=== PATIENT | female | born 1945 | race Caucasian/White ===

== ENCOUNTER → 2017-10-28 | Outpatient (CLI) | payer MEDICARE, OTHER ==
[~2017-10-28] MED LIST: AMARYL4 MG PO; ASPIR 8181 MG PO; AVANDIA PO; AVANDIA8 MG; BONIVA150 MG; CELEXA 20 MG TA20 MG PO; CLEOCIN HCL300 MG PO; CLINDAMYCI75 MG/5 ML PO; COZAAR100 MG PO; CRESTOR10 MG PO; DESYREL50 MG PO; DETROL2 M1 PO; GEMFIBROZIL 60600 MG PO; GLUCOPHAGE500 MG PO; GLYBURID-METFO1 EAC3 PO; GLYBURIDE 5 MG T5 M1 PO; HYDROCODONE-AP1 EAC6 PO; IBUPROFEN 600600 M1 PO; LANTUS SUBQ; LEVOTHYROXIN0.025 MG PO; METFORMIN HCL500 MG PO; MOBIC7.5 M1 PO; NORCO 5-325 TA1 EACH PO; OMEPRAZOLE40 MG PO; PERCOCET 5-3251 EACH PO; REQUIP 1 MG TABL1 M1 PO; SEE COMMENTS; SERTRALINE HCL100 MG PO; TRIAMTERENE-HC1 EAC3 PO; VITAMIN D3400 UNIT PO; [UNRECOGNIZED DRUG - OTHER]; [UNRECOGNIZED DRUG - REMARK]
== END ==
LOC: M.RAD 10-22 14:54
DX: Z12.31 Encounter for screening mammogram for malignant neoplasm of breast (principal); I65.23 Occlusion and stenosis of bilateral carotid arteries; E11.9 Type 2 diabetes mellitus without complications; I10 Essential (primary) hypertension; R73.9 Hyperglycemia, unspecified

== ENCOUNTER 2017-12-18 09:35 | Emergency (ER) | payer MEDICARE, OTHER ==
[~2017-12-18] VITALS: Ht 167.6 cm; Wt 90.7 kg
[~2017-12-18 09:35] MED LIST changes: -HYDROCODONE-AP1 EAC6 PO; -IBUPROFEN 600600 M1 PO; -[UNRECOGNIZED DRUG - REMARK]
[2017-12-18] MEDS ORDERED: [UNRECOGNIZED DRUG - REMARK] (09:57)
[2017-12-18] MEDS ORDERED: HYDROCODONE-AP1 EAC6 PO (10:38)
[2017-12-18] MEDS ORDERED: IBUPROFEN 600600 M1 PO (10:38)
[2017-12-18 11:02] VITALS: BP 146/59
== END 2017-12-18 11:02 | disposition home or self-care (01) ==
LOC: M.ERS 09:35
DX: S22.42XA Multiple fractures of ribs, left side, initial encounter for closed fracture (principal); E11.9 Type 2 diabetes mellitus without complications; E78.00 Pure hypercholesterolemia, unspecified; W18.30XA Fall on same level, unspecified, initial encounter; Y93.89 Activity, other specified; Y92.89 Other specified places as the place of occurrence of the external cause; Y99.8 Other external cause status

== ENCOUNTER → 2019-06-08 | Outpatient (CLI) | payer MEDICARE, OTHER ==
[~2019-06-08] MED LIST changes: +HYDROCODONE-AP1 EAC6 PO; +IBUPROFEN 600600 M1 PO; +[UNRECOGNIZED DRUG - REMARK]
[2019-06-08 06:28] LABS: POTASSIUM 4.7 mmol/L (3.5-5.1)
== END ==
LOC: M.LAB 04:59
PROVIDERS: Anesthesiology
DX: E11.9 Type 2 diabetes mellitus without complications (principal); E87.6 Hypokalemia

== ENCOUNTER → 2019-06-16 | Outpatient (CLI) | payer MEDICARE, OTHER | LOC: M.RAD 10:23 | DX: Z12.31 Encounter for screening mammogram for malignant neoplasm of breast (principal) ==

== ENCOUNTER 2019-09-09 10:29 | Emergency (ER) | payer MEDICARE, OTHER ==
[~2019-09-09] VITALS: Ht 180.3 cm; Wt 81.7 kg
[2019-09-09] MEDS ORDERED: LANTUS SUBQ (11:05)
[2019-09-09] MEDS ORDERED: LEVEMIR100 UNIT/1 (11:06)
[2019-09-09 12:31] VITALS: BP 131/78
== END 2019-09-09 12:32 | disposition home or self-care (01) ==
LOC: M.ERS 10:29
DX: M79.661 Pain in right lower leg (principal); E11.9 Type 2 diabetes mellitus without complications; E78.00 Pure hypercholesterolemia, unspecified; F32.9 Major depressive disorder, single episode, unspecified; Z98.84 Bariatric surgery status; Z91.048 Other nonmedicinal substance allergy status; Z79.4 Long term (current) use of insulin

== ENCOUNTER 2019-10-29 18:26 | Inpatient (IN) | payer OTHER ==
[~2019-10-29] VITALS: Ht 170.2 cm; Wt 81.6 kg
[~2019-10-29 18:26] MED LIST changes: +LEVEMIR100 UNIT/1 SUBQ
[2019-10-29 18:27] VITALS: BP 182/75
[2019-10-29 18:47] LABS: ABSOLUTE BASOPHILS 0.1 thou/uL (0.0-0.2); ABSOLUTE LYMPHOCYTES 1.4 thou/uL (0.8-5.3); ABSOLUTE MONOCYTES 0.6 thou/uL (0.0-1.2); ABSOLUTE NEUTROPHILS 5.5 thou/uL (1.6-8.1); BASOPHILS 0.7 %; EOSINOPHILS 0.5 %; HEMATOCRIT 38.6 % (37.0-47.0); HEMOGLOBIN 13.1 gm/dL (12.0-15.0); LYMPHOCYTES 18.7 %; MCH 28.1 pg (26.0-34.0); MCHC 33.8 g/dL (28.0-37.0); MCV 83.2 fL (80.0-100.0); MONOCYTES 7.4 %; MPV 8.4 fl. (7.2-11.1); NUCLEATED RBCS 0 /100WBC; PLATELET COUNT* 203 thou/uL (150-400); POLYS 72.7 %; RBC 4.64 mil/uL (4.20-5.00); RDW-CV 15.2 % (10.5-14.5); WBC 7.6 thou/uL (4.0-11.0)
[2019-10-29 18:51] LABS: PCO2 VENOUS 40.1 mmHg (41.0-51.0)
[2019-10-29 19:00] LABS: APTT 22.6 Seconds (25.0-31.3); PROTIME 10.1 Seconds (9.20-11.50)
[2019-10-29 19:09] LABS: CALCIUM 9.2 mg/dL (8.5-10.1); CREATININE 1.8 mg/dL (0.6-1.3); POTASSIUM 3.9 mmol/L (3.5-5.1)
[2019-10-29 19:10] LABS: ALBUMIN 3.3 g/dL (3.4-5.0); TOTAL BILIRUBIN 0.4 mg/dL (<0.1-1.0); TOTAL PROTEIN 7.5 g/dL (6.4-8.2)
[2019-10-29 23:16] VITALS: BP 159/84
[2019-10-29 23:35] VITALS: BP 170/76
[2019-10-30 04:42] LABS: ABSOLUTE EOSINOPHILS 0.1 thou/uL (0.0-0.7); ABSOLUTE LYMPHOCYTES 1.9 thou/uL (0.8-5.3); ABSOLUTE MONOCYTES 0.7 thou/uL (0.0-1.2); ABSOLUTE NEUTROPHILS 5.1 thou/uL (1.6-8.1); BASOPHILS 0.6 %; EOSINOPHILS 0.7 %; LYMPHOCYTES 24.1 %; MCH 27.8 pg (26.0-34.0); MCHC 34.2 g/dL (28.0-37.0); MCV 81.2 fL (80.0-100.0); MONOCYTES 9.4 %; MPV 8.4 fl. (7.2-11.1); NUCLEATED RBCS 0 /100WBC; PLATELET COUNT* 198 thou/uL (150-400); POLYS 65.2 %; RDW-CV 15.6 % (10.5-14.5); WBC 7.8 thou/uL (4.0-11.0)
[2019-10-30 04:54] LABS: CREATININE 1.3 mg/dL (0.6-1.3); POTASSIUM 3.7 mmol/L (3.5-5.1)
[2019-10-30 08:30] VITALS: BP 157/80
[2019-10-30 15:48] VITALS: BP 144/67
[2019-10-30 20:00] VITALS: BP 170/80
[2019-10-31 09:06] VITALS: BP 147/65
--- NOTE | 2019-10-31 10:08 | EKG ---
[place] [address] ELECTROCARDIOGRAM REPORT Name: KHLOECHARLOTTEBENY BRANDAN Room: [address] ADM IN M.R.#: [id number] Admission: 10/29/19 Attend Phys: Josué Little MD Discharge: Date of : 45 Report #: [id number] THIS REPORT FOR: //name// [facility] ED Test Date: 2019-10-29 Test Time: 18:40:40 Pat Name: BENY GARDINER Department: Room: [facility] Gender: F Automatic Folder Seamer: [place] : 1945 Requested By: Flavio Medina Order Number: [id number] MD: oPp Rosas Measurements Intervals [place] Rate: 100 P: 47 NE: 144 QRS: 105 QRSD: 97 T: 54 QT: 359 QTc: 463 Interpretive Statements Sinus tachycardia Multiple premature complexes, vent & supraven Probable right ventricular hypertrophy Nonspecific T abnormalities, anterior leads Compared to ECG 08/13/2016 12:47:40 T-wave abnormality now present Sinus rhythm no longer present Electronically Signed On 10-31-2019 10:08:11 [employer]ING [employer] by Pop Rosas [email or web address] <ELECTRONICALLY SIGNED> By: Pop Rosas MD, FAC 10/31/19 [id number] Pop Rosas MD, [facility] /EPI
[2019-10-31 10:09] VITALS: BP 147/65
[2019-10-31 12:17] VITALS: BP 147/65
== END 2019-10-31 13:30 | disposition home health service (06) | DRG 637 ==
LOC: M.ERS 18:26 → M.ORTHSURG 20:25 → M.TBA-ER 20:25 → M.ORTHSURG 23:28
PROVIDERS: Family Medicine; ADMIT Internal Medicine
DX: E11.00 Type 2 diabetes mellitus with hyperosmolarity without nonketotic hyperglycemic-hyperosmolar coma (NKHHC) (principal); N17.0 Acute kidney failure with tubular necrosis; E87.1 Hypo-osmolality and hyponatremia; E86.0 Dehydration; E11.65 Type 2 diabetes mellitus with hyperglycemia; E78.5 Hyperlipidemia, unspecified; F32.9 Major depressive disorder, single episode, unspecified; F03.90 Unspecified dementia, unspecified severity, without behavioral disturbance, psychotic disturbance, mood disturbance, and anxiety; E78.00 Pure hypercholesterolemia, unspecified; Z79.4 Long term (current) use of insulin; Z98.84 Bariatric surgery status; Z79.82 Long term (current) use of aspirin; Z79.84 Long term (current) use of oral hypoglycemic drugs; Z79.899 Other long term (current) drug therapy; Z91.048 Other nonmedicinal substance allergy status; Z82.49 Family history of ischemic heart disease and other diseases of the circulatory system